=== PATIENT | male | born 1975 | race Two or more races ===

== ENCOUNTER 2017-04-02 23:17 | Emergency (ER) | payer MEDICAID ==
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
== END 2017-04-03 00:05 | disposition home or self-care (01) ==
LOC: ER 23:17
DX: S09.90XA Unspecified injury of head, initial encounter (principal); W18.39XA Other fall on same level, initial encounter; Y92.007 Garden or yard of unspecified non-institutional (private) residence as the place of occurrence of the external cause